=== PATIENT | male | born 1945 | race Caucasian/White ===

== ENCOUNTER 2017-11-16 14:41 | Inpatient (IN) | payer MEDICAID ==
[2017-11-16] MEDS: SOD CHLORIDE 0.9% 1,000 ML IV ×3 (15:23→22:45)
[2017-11-16] MEDS: AMIODARONE 900 MG in DEXTROSE 5% 482 ML IV (15:23)
[2017-11-16 15:55] LABS: WHITE BLOOD COUNT 32.4 10^3/ul (4.8-10.8)
[2017-11-16 15:55] LABS: ABNORMAL IP MESSAGE 1; HEMATOCRIT 33.2 % (42.0-52.0); HEMOGLOBIN 10.4 g/dl (14.0-18.0); MEAN CORPUSCULAR HEMOGLOBIN 29.6 pg (29.0-33.0); MEAN CORPUSCULAR HGB CONC 31.3 g/dl (32.0-37.0); MEAN CORPUSCULAR VOLUME 94.6 fl (82.0-101.0); MEAN PLATELET VOLUME 9.9 fl (7.4-10.4); NUCLEATED RED BLOOD CELLS% 0.1 /100WBC (0.0-0.0); PLATELET COUNT 334 10^3/UL (140-415); POSITIVE DIFF @See below; RED BLOOD COUNT 3.51 10^6/ul (4.70-6.10); RED CELL DISTRIBUTION WIDTH 14.9 % (11.5-14.5)
[2017-11-16 16:07] LABS: ADD MAN DIFF? YES
[2017-11-16 16:18] LABS: ALANINE AMINOTRANSFERASE 71 IU/L (13-69); ALBUMIN 3.2 g/dl (3.3-4.9); ALBUMIN/GLOBULIN RATIO 0.82; ALKALINE PHOSPHATASE 305 IU/L (42-121); ANION GAP 23 (8-16); ASPARTATE AMINO TRANSFERASE 115 IU/L (15-46); BILIRUBIN,INDIRECT 0.2 mg/dl (0-1.1); BILIRUBIN,TOTAL 0.2 mg/dl (0.2-1.3); BLOOD UREA NITROGEN 16 mg/dl (7-20); CALCIUM 8.7 mg/dl (8.4-10.2); CARBON DIOXIDE 16 mmol/L (21-31); CHLORIDE 102 mmol/L (97-110); GLUCOSE 263 mg/dl (70-220); POTASSIUM 4.1 mmol/L (3.5-5.1); SODIUM 137 mmol/L (135-144); TOTAL PROTEIN 7.1 g/dl (6.1-8.1)
[2017-11-16 16:24] LABS: INR 1.28; PROTIME 16.2 Sec (11.9-14.9); PT RATIO 1.3
[2017-11-16 16:25] LABS: PARTIAL THROMBOPLASTIN TIME 42.2 Sec (25.0-35.0)
[2017-11-16 16:27] LABS: B-TYPE NATRIURETIC PEPTIDE 377 PG/ML (0-125); TROPONIN-I 0.101 ng/ml (0.00-0.12)
[2017-11-16 16:29] LABS: BAND NEUTROPHILS #M 4.5 10^3/ul (0.0-0.6); BAND NEUTROPHILS % (M) 14 % (0-4); BASOPHIL #M 0.3 10^3/ul (0.0-0.0); BASOPHILS % (M) 1 % (0-2); EOSINOPHILS % (M) 2 % (0-7); LYMPHOCYTES #M 5.8 10^3/ul (0.8-2.9); LYMPHOCYTES % (M) 18 % (15-51); METAMYELOCYTES #M 1.9 10^3/ul (0.0-0.0); METAMYELOCYTES %M 6 % (0-0); MYELOCYTES #M 0.6 10^3/ul (0.0-0.0); MYELOCYTES % (M) 2 % (0-0); PLATELET ESTIMATE NORMAL; POLYCHROMASIA 1+ (0-0); PROMYELOCYTES #M 0.6 10^3/ul (0-0); PROMYELOCYTES % (M) 2 % (0-0); SEG NEUT #M 19.3 10^3/ul (1.6-7.5); SEGMENTED NEUTROPHILS (M) % 55 % (39-77); SMUDGE%M 4 % (0-0)
[2017-11-16 16:35] LABS: AADO2 Arterial 203.2 mmHg (7.0-24.0); Allen Test ACCEPTAB; Arterial Base Excess -8.8 mmol/L (-3.0-3); Arterial Blood Gas Oxygen Sat 99.8 mmHG (95.0-100.0); Arterial COHb 0.3 % (0.0-3.0); Arterial Fraction of Oxyhgb 99.1 % (93.0-99.0); Arterial HCO3 15.8 mmol/L (22.0-26.0); Arterial MetHb 0.4 % (0.0-1.5); Arterial Total Hemglobin 11.9 g/dl (12.0-18.0); Arterial pCO2 30.1 mmhg (35-45); MODE VENT - AC; Site Left Radial
[2017-11-16] MEDS: CEFEPIME 2GM/50 ML (PMX) 50 ML IVPB (19:19)
[2017-11-16] MEDS: SODIUM CHLORIDE 0.9% 1L BAG IV* (19:20)
[2017-11-16] MEDS: EPINEPHrine 0.1 MG/ML SYG IV (19:23)
[2017-11-16 19:53] LABS: LACTIC ACID 4.6 mmol/L (0.5-2.0)
[2017-11-16] MEDS ORDERED: ACETAMINOPHEN 325 MG TAB PO (20:00)
[2017-11-16] MEDS ORDERED: ONDANSETRON 4 MG INJ IV (20:00)
[2017-11-16 20:14] LABS: ADD UMIC YES; UR ASCORBIC ACID 40 mg/dL (NEGATIVE); UR BILIRUBIN (Dip) NEGATIVE (NEGATIVE); UR BLOOD (Dip) 1+ mg/dL (NEGATIVE); UR CLARITY CLOUDY (CLEAR); UR COLOR YELLOW (YELLOW); UR GLUCOSE (Dip) 2+ mg/dL (NEGATIVE); UR KETONES (Dip) NEGATIVE (NEGATIVE); UR LEUKOCYTE ESTERASE (Dip) NEGATIVE Leu/ul (NEGATIVE); UR NITRITE (Dip) NEGATIVE (NEGATIVE); UR RBC 6 /HPF (0-5); UR SPECIFIC GRAVITY (Dip) 1.014 (1.003-1.030); UR TOTAL PROTEIN (Dip) 2+ mg/dl (NEGATIVE); UR UROBILINOGEN (Dip) NEGATIVE (NEGATIVE); UR WBC 9 /HPF (0-5)
[2017-11-16 20:39] LABS: INR 1.26; PT RATIO 1.3
[2017-11-16] MEDS ORDERED: ALBUTEROL HFA 8 GM INHALER INH (21:00)
[2017-11-16] MEDS ORDERED: IPRATROPIUM (HFA) 12.9 GM INHALER INH (21:00)
[2017-11-16] MEDS ORDERED: ENOXAPARIN 100 MG/ML SYG SC (21:30)
[2017-11-16] MEDS: VANCOMYCIN 1 GM (PMX) 250 ML IVPB (21:30)
[2017-11-16 22:41] LABS: LACTIC ACID 3.8 mmol/L (0.5-2.0)
[2017-11-17 00:13] LABS: LACTIC ACID 3.4 mmol/L (0.5-2.0)
[2017-11-17 00:50] LABS: ADD MAN DIFF? NO
[2017-11-17 00:52] LABS: ABNORMAL IP MESSAGE 1; BASOPHIL # 0.1 10^3/ul (0.0-0.1); BASOPHILS % 0.3 % (0.0-2.0); HEMATOCRIT 31.5 % (42.0-52.0); HEMOGLOBIN 10.4 g/dl (14.0-18.0); LYMPHOCYTES # 1.5 10^3/ul (0.8-2.9); MEAN CORPUSCULAR HEMOGLOBIN 29.7 pg (29.0-33.0); MEAN PLATELET VOLUME 9.6 fl (7.4-10.4); MONOCYTE # 1.3 10^3/ul (0.3-0.9); MONOCYTES % 5.2 % (0.0-11.0); NEUTROPHIL # 21.8 10^3/ul (1.6-7.5); NEUTROPHILS % 86.4 % (39.0-77.0); PLATELET COUNT 298 10^3/UL (140-415); POSITIVE DIFF @See below; RED CELL DISTRIBUTION WIDTH 14.9 % (11.5-14.5)
[2017-11-17 00:52] LABS: WHITE BLOOD COUNT 25.2 10^3/ul (4.8-10.8)
[2017-11-17 01:17] LABS: ALANINE AMINOTRANSFERASE 70 IU/L (13-69); ALBUMIN 3.1 g/dl (3.3-4.9); ALBUMIN/GLOBULIN RATIO 0.77; ALKALINE PHOSPHATASE 223 IU/L (42-121); ANION GAP 12 (8-16); ASPARTATE AMINO TRANSFERASE 98 IU/L (15-46); BILIRUBIN,INDIRECT 0.4 mg/dl (0-1.1); BILIRUBIN,TOTAL 0.4 mg/dl (0.2-1.3); BLOOD UREA NITROGEN 26 mg/dl (7-20); CALCIUM 8.8 mg/dl (8.4-10.2); CARBON DIOXIDE 24 mmol/L (21-31); CHLORIDE 107 mmol/L (97-110); CREATININE 0.57 mg/dl (0.61-1.24); GLUCOSE 159 mg/dl (70-220); POTASSIUM 4.1 mmol/L (3.5-5.1); SODIUM 139 mmol/L (135-144); TOTAL PROTEIN 7.1 g/dl (6.1-8.1)
[2017-11-17] MEDS ORDERED: ENOXAPARIN 100 MG/ML SYG SC (02:00)
[2017-11-17] MEDS ORDERED: VANCOMYCIN IV PER PHARMACY XX (02:00)
[2017-11-17] MEDS: metroNIDAZOLE 500 MG/NS (PMX) 100 ML IVPB ×3 (02:24→22:17)
[2017-11-17] MEDS: ACETAMINOPHEN 650MG/20.3ML CUP NGT (02:24)
[2017-11-17] MEDS: METOPROLOL 25 MG TAB NGT ×3 (02:24→21:00)
[2017-11-17] MEDS ORDERED: LORAZEPAM 2 MG INJ IV (02:30)
[2017-11-17] MEDS: ATORVASTATIN 80 MG TAB NGT ×2 (03:31→21:00)
[2017-11-17] MEDS: LEVETIRACETAM 1000 MG (PMX) 100 ML IVPB ×3 (03:31→21:28)
[2017-11-17 05:52] LABS: TYPE AND SCREEN 1 1
[2017-11-17 05:59] LABS: ADD MAN DIFF? NO
[2017-11-17 06:07] LABS: BASOPHIL # 0.1 10^3/ul (0.0-0.1); BASOPHILS % 0.3 % (0.0-2.0); HEMATOCRIT 32.2 % (42.0-52.0); HEMOGLOBIN 10.6 g/dl (14.0-18.0); LYMPHOCYTES # 1.9 10^3/ul (0.8-2.9); LYMPHOCYTES % 9.3 % (15.0-51.0); MEAN CORPUSCULAR HEMOGLOBIN 29.9 pg (29.0-33.0); MEAN CORPUSCULAR HGB CONC 32.9 g/dl (32.0-37.0); MEAN PLATELET VOLUME 10.2 fl (7.4-10.4); MONOCYTE # 1.1 10^3/ul (0.3-0.9); MONOCYTES % 5.3 % (0.0-11.0); NEUTROPHIL # 16.8 10^3/ul (1.6-7.5); NEUTROPHILS % 83.8 % (39.0-77.0); PLATELET COUNT 274 10^3/UL (140-415); RED BLOOD COUNT 3.54 10^6/ul (4.70-6.10); RED CELL DISTRIBUTION WIDTH 14.8 % (11.5-14.5)
[2017-11-17 06:07] LABS: WHITE BLOOD COUNT 20.1 10^3/ul (4.8-10.8)
[2017-11-17 06:27] LABS: LACTIC ACID 1.6 mmol/L (0.5-2.0)
[2017-11-17 06:33] LABS: ALANINE AMINOTRANSFERASE 67 IU/L (13-69); ALBUMIN 3.1 g/dl (3.3-4.9); ALBUMIN/GLOBULIN RATIO 0.79; ALKALINE PHOSPHATASE 205 IU/L (42-121); ANION GAP 13 (8-16); ASPARTATE AMINO TRANSFERASE 82 IU/L (15-46); BILIRUBIN,INDIRECT 0.3 mg/dl (0-1.1); BILIRUBIN,TOTAL 0.3 mg/dl (0.2-1.3); BLOOD UREA NITROGEN 23 mg/dl (7-20); CALCIUM 8.6 mg/dl (8.4-10.2); CARBON DIOXIDE 23 mmol/L (21-31); CHLORIDE 108 mmol/L (97-110); CREATINE KINASE 342 IU/L (23-200); CREATININE 0.52 mg/dl (0.61-1.24); GLUCOSE 144 mg/dl (70-220); MAGNESIUM 1.4 mg/dl (1.7-2.5); POTASSIUM 3.8 mmol/L (3.5-5.1); SODIUM 140 mmol/L (135-144)
[2017-11-17 06:42] LABS: CK INDEX 1.4
[2017-11-17 06:43] LABS: CK-MB 4.69 ng/ml (0.0-2.4); TROPONIN-I 0.914 ng/ml (0.00-0.12)
[2017-11-17 07:54] LABS: THYROID STIMULATING HORMONE 0.769 MIU/L (0.465-4.680)
[2017-11-17 08:35] LABS: LACTIC ACID 1.5 mmol/L (0.5-2.0)
[2017-11-17] MEDS: PIPER-TAZO 3.375 GM IV (PMX) 100 ML IVPB ×3 (08:41→17:50)
[2017-11-17] MEDS: PANTOPRAZOLE 40 MG INJ IV (08:42)
[2017-11-17] MEDS: VANCOMYCIN 1 GM 250 ML IVPB ×2 (10:13→21:43)
[2017-11-17] MEDS: SOD CHLORIDE 0.9% 100 ML (10:35)
[2017-11-17] MEDS: IOHEXOL 300MG/ML 150 ML BTL (10:35)
[2017-11-17] MEDS: POTASSIUM CHLORIDE 20 MEQ POWDER FOR ORAL SOLN NGT (10:57)
[2017-11-17] MEDS: SOD CHLORIDE 0.9% 1,000 ML IV (10:57)
[2017-11-17] MEDS: MAGNESIUM SULFATE 4 GM/100 ML 100 ML IVPB (11:36)
[2017-11-17 12:44] LABS: LACTIC ACID 1.3 mmol/L (0.5-2.0)
[2017-11-17 12:46] LABS: CREATINE KINASE 257 IU/L (23-200)
[2017-11-17 13:01] LABS: CK-MB 2.58 ng/ml (0.0-2.4); TROPONIN-I 0.399 ng/ml (0.00-0.12)
[2017-11-17 19:07] LABS: CREATINE KINASE 211 IU/L (23-200)
[2017-11-17 19:07] LABS: LACTIC ACID 1.1 mmol/L (0.5-2.0)
[2017-11-17 19:19] LABS: CK INDEX 0.7
[2017-11-17 19:20] LABS: CK-MB 1.57 ng/ml (0.0-2.4)
[2017-11-18] MEDS: PIPER-TAZO 3.375 GM IV (PMX) 100 ML IVPB ×5 (00:15→23:35)
[2017-11-18] MEDS: SOD CHLORIDE 0.9% 1,000 ML IV ×2 (00:35→12:41)
[2017-11-18 05:43] LABS: ADD MAN DIFF? NO
[2017-11-18 05:44] LABS: BASOPHIL # 0.1 10^3/ul (0.0-0.1); BASOPHILS % 0.3 % (0.0-2.0); EOSINOPHILS % 0.1 % (0.0-7.0); HEMOGLOBIN 9.2 g/dl (14.0-18.0); LYMPHOCYTES # 1.9 10^3/ul (0.8-2.9); LYMPHOCYTES % 9.7 % (15.0-51.0); MEAN CORPUSCULAR HEMOGLOBIN 29.5 pg (29.0-33.0); MEAN CORPUSCULAR HGB CONC 31.7 g/dl (32.0-37.0); MEAN CORPUSCULAR VOLUME 92.9 fl (82.0-101.0); MEAN PLATELET VOLUME 9.6 fl (7.4-10.4); MONOCYTE # 1.1 10^3/ul (0.3-0.9); MONOCYTES % 5.5 % (0.0-11.0); NEUTROPHIL # 16.7 10^3/ul (1.6-7.5); NEUTROPHILS % 83.8 % (39.0-77.0); PLATELET COUNT 280 10^3/UL (140-415); RED BLOOD COUNT 3.12 10^6/ul (4.70-6.10); RED CELL DISTRIBUTION WIDTH 15.1 % (11.5-14.5)
[2017-11-18 05:44] LABS: WHITE BLOOD COUNT 19.9 10^3/ul (4.8-10.8)
[2017-11-18] MEDS: ACETAMINOPHEN 650MG/20.3ML CUP NGT ×2 (05:59→20:18)
[2017-11-18 06:13] LABS: ALANINE AMINOTRANSFERASE 45 IU/L (13-69); ALBUMIN/GLOBULIN RATIO 0.76; ALKALINE PHOSPHATASE 155 IU/L (42-121); ANION GAP 12 (8-16); ASPARTATE AMINO TRANSFERASE 59 IU/L (15-46); BILIRUBIN,INDIRECT 0.2 mg/dl (0-1.1); BILIRUBIN,TOTAL 0.2 mg/dl (0.2-1.3); BLOOD UREA NITROGEN 14 mg/dl (7-20); CALCIUM 8.3 mg/dl (8.4-10.2); CARBON DIOXIDE 25 mmol/L (21-31); CHLORIDE 108 mmol/L (97-110); CREATININE 0.54 mg/dl (0.61-1.24); GLUCOSE 109 mg/dl (70-220); MAGNESIUM 2.1 mg/dl (1.7-2.5); POTASSIUM 3.7 mmol/L (3.5-5.1); SODIUM 141 mmol/L (135-144); TOTAL PROTEIN 6.9 g/dl (6.1-8.1)
[2017-11-18] MEDS: metroNIDAZOLE 500 MG/NS (PMX) 100 ML IVPB ×3 (06:50→22:06)
[2017-11-18] MEDS: PANTOPRAZOLE 40 MG INJ IV (06:51)
[2017-11-18 08:29] LABS: AADO2 Arterial 74.5 mmHg (7.0-24.0); Arterial Base Excess -0.3 mmol/L (-3.0-3); Arterial Blood Gas Oxygen Sat 97.7 mmHG (95.0-100.0); Arterial COHb 0.3 % (0.0-3.0); Arterial Fraction of Oxyhgb 97.2 % (93.0-99.0); Arterial HCO3 21.9 mmol/L (22.0-26.0); Arterial MetHb 0.2 % (0.0-1.5); Arterial Total Hemglobin 10.2 g/dl (12.0-18.0); Arterial pCO2 27.8 mmhg (35-45); MODE VENT - AC; Site LB
[2017-11-18 08:35] LABS: VANCOMYCIN,TROUGH 8.3 ug/ml (10.0-20.0)
[2017-11-18] MEDS: LEVETIRACETAM 1000 MG (PMX) 100 ML IVPB ×2 (08:48→20:47)
[2017-11-18] MEDS: METOPROLOL 25 MG TAB NGT ×2 (08:50→20:47)
[2017-11-18] MEDS: VANCOMYCIN 1 GM 250 ML IVPB (09:12)
[2017-11-18] MEDS: VANCOMYCIN 1.5 GM in SOD CHLORIDE 0.9% 250 ML IVPB ×2 (09:14→22:06)
[2017-11-18] MEDS: ATORVASTATIN 80 MG TAB NGT (20:47)
[2017-11-19] MEDS: SOD CHLORIDE 0.9% 1,000 ML IV ×2 (01:09→13:07)
[2017-11-19 05:31] LABS: ADD MAN DIFF? NO
[2017-11-19 05:32] LABS: BASOPHIL # 0.1 10^3/ul (0.0-0.1); BASOPHILS % 0.6 % (0.0-2.0); EOSINOPHILS % 0.1 % (0.0-7.0); HEMATOCRIT 28.1 % (42.0-52.0); HEMOGLOBIN 8.9 g/dl (14.0-18.0); LYMPHOCYTES # 2.4 10^3/ul (0.8-2.9); LYMPHOCYTES % 15.4 % (15.0-51.0); MEAN CORPUSCULAR HEMOGLOBIN 29.3 pg (29.0-33.0); MEAN CORPUSCULAR HGB CONC 31.7 g/dl (32.0-37.0); MEAN CORPUSCULAR VOLUME 92.4 fl (82.0-101.0); MEAN PLATELET VOLUME 10.3 fl (7.4-10.4); MONOCYTES % 6.3 % (0.0-11.0); NEUTROPHIL # 11.9 10^3/ul (1.6-7.5); PLATELET COUNT 141 10^3/UL (140-415); RED BLOOD COUNT 3.04 10^6/ul (4.70-6.10); RED CELL DISTRIBUTION WIDTH 14.8 % (11.5-14.5)
[2017-11-19 05:32] LABS: WHITE BLOOD COUNT 15.4 10^3/ul (4.8-10.8)
[2017-11-19 06:12] LABS: ALANINE AMINOTRANSFERASE 38 IU/L (13-69); ALBUMIN 2.6 g/dl (3.3-4.9); ALBUMIN/GLOBULIN RATIO 0.74; ALKALINE PHOSPHATASE 119 IU/L (42-121); ANION GAP 11 (8-16); ASPARTATE AMINO TRANSFERASE 68 IU/L (15-46); BILIRUBIN,INDIRECT 0.3 mg/dl (0-1.1); BILIRUBIN,TOTAL 0.3 mg/dl (0.2-1.3); BLOOD UREA NITROGEN 13 mg/dl (7-20); CALCIUM 8.1 mg/dl (8.4-10.2); CARBON DIOXIDE 23 mmol/L (21-31); CHLORIDE 113 mmol/L (97-110); CREATININE 0.53 mg/dl (0.61-1.24); GLUCOSE 95 mg/dl (70-220); MAGNESIUM 1.8 mg/dl (1.7-2.5); POTASSIUM 3.1 mmol/L (3.5-5.1); SODIUM 144 mmol/L (135-144); TOTAL PROTEIN 6.1 g/dl (6.1-8.1)
[2017-11-19] MEDS: ACETAMINOPHEN 650MG/20.3ML CUP NGT (06:46)
[2017-11-19] MEDS: PANTOPRAZOLE 40 MG INJ IV (06:46)
[2017-11-19] MEDS: PIPER-TAZO 3.375 GM IV (PMX) 100 ML IVPB ×3 (06:46→17:53)
[2017-11-19] MEDS: metroNIDAZOLE 500 MG/NS (PMX) 100 ML IVPB ×3 (07:40→21:47)
[2017-11-19] MEDS: LEVETIRACETAM 1000 MG (PMX) 100 ML IVPB ×2 (08:59→22:12)
[2017-11-19] MEDS: METOPROLOL 25 MG TAB NGT ×2 (09:00→21:48)
[2017-11-19] MEDS: POTASSIUM CHLORIDE 20 MEQ POWDER FOR ORAL SOLN GTB (09:30)
[2017-11-19] MEDS: POTASSIUM CHLORIDE 100 ML IVPB (09:52)
[2017-11-19] MEDS: RIFAXIMIN 550 MG TAB GTB ×2 (09:52→21:47)
[2017-11-19] MEDS: VANCOMYCIN 1.5 GM in SOD CHLORIDE 0.9% 250 ML IVPB (10:17)
[2017-11-19] MEDS: ATORVASTATIN 80 MG TAB NGT (21:47)
[2017-11-20] MEDS: PIPER-TAZO 3.375 GM IV (PMX) 100 ML IVPB ×4 (00:13→17:50)
[2017-11-20] MEDS: VANCOMYCIN 1.5 GM in SOD CHLORIDE 0.9% 250 ML IVPB ×4 (00:46→23:58)
[2017-11-20 05:01] LABS: AADO2 Arterial 49.7 mmHg (7.0-24.0); Arterial Base Excess -3.6 mmol/L (-3.0-3); Arterial Blood Gas Oxygen Sat 98.5 mmHG (95.0-100.0); Arterial COHb 0.3 % (0.0-3.0); Arterial Fraction of Oxyhgb 97.9 % (93.0-99.0); Arterial HCO3 18.7 mmol/L (22.0-26.0); Arterial MetHb 0.3 % (0.0-1.5); Arterial Total Hemglobin 11.5 g/dl (12.0-18.0); MODE VENT - AC; Site Right Brachial
[2017-11-20] MEDS: PANTOPRAZOLE 40 MG INJ IV (06:27)
[2017-11-20] MEDS: metroNIDAZOLE 500 MG/NS (PMX) 100 ML IVPB (06:28)
[2017-11-20] MEDS: SOD CHLORIDE 0.9% 1,000 ML IV ×2 (07:42→16:00)
[2017-11-20 09:11] LABS: ADD MAN DIFF? NO
[2017-11-20 09:18] LABS: BASOPHIL # 0.1 10^3/ul (0.0-0.1); BASOPHILS % 0.5 % (0.0-2.0); EOSINOPHILS # 0.2 10^3/ul (0.0-0.5); EOSINOPHILS % 1.8 % (0.0-7.0); HEMATOCRIT 28.3 % (42.0-52.0); HEMOGLOBIN 9.4 g/dl (14.0-18.0); LYMPHOCYTES # 1.7 10^3/ul (0.8-2.9); LYMPHOCYTES % 14.1 % (15.0-51.0); MEAN CORPUSCULAR HEMOGLOBIN 30.4 pg (29.0-33.0); MEAN CORPUSCULAR HGB CONC 33.2 g/dl (32.0-37.0); MEAN CORPUSCULAR VOLUME 91.6 fl (82.0-101.0); MEAN PLATELET VOLUME 10.5 fl (7.4-10.4); MONOCYTE # 0.7 10^3/ul (0.3-0.9); MONOCYTES % 5.5 % (0.0-11.0); NEUTROPHIL # 9.4 10^3/ul (1.6-7.5); NEUTROPHILS % 77.7 % (39.0-77.0); PLATELET COUNT 184 10^3/UL (140-415); RED BLOOD COUNT 3.09 10^6/ul (4.70-6.10); RED CELL DISTRIBUTION WIDTH 14.7 % (11.5-14.5)
[2017-11-20 09:18] LABS: WHITE BLOOD COUNT 12.1 10^3/ul (4.8-10.8)
[2017-11-20 09:33] LABS: ALANINE AMINOTRANSFERASE 39 IU/L (13-69); ALBUMIN 2.3 g/dl (3.3-4.9); ALBUMIN/GLOBULIN RATIO 0.69; ALKALINE PHOSPHATASE 117 IU/L (42-121); ANION GAP 8 (8-16); ASPARTATE AMINO TRANSFERASE 57 IU/L (15-46); BILIRUBIN,INDIRECT 0.3 mg/dl (0-1.1); BILIRUBIN,TOTAL 0.3 mg/dl (0.2-1.3); BLOOD UREA NITROGEN 11 mg/dl (7-20); CARBON DIOXIDE 24 mmol/L (21-31); CHLORIDE 111 mmol/L (97-110); CREATININE 0.46 mg/dl (0.61-1.24); GLUCOSE 95 mg/dl (70-220); MAGNESIUM 1.5 mg/dl (1.7-2.5); POTASSIUM 3.1 mmol/L (3.5-5.1); SODIUM 140 mmol/L (135-144); TOTAL PROTEIN 5.6 g/dl (6.1-8.1)
[2017-11-20] MEDS: RIFAXIMIN 550 MG TAB GTB ×3 (09:42→23:10)
[2017-11-20] MEDS: AMLODIPINE 5 MG TAB PO ×2 (09:47→23:02)
[2017-11-20] MEDS: LEVETIRACETAM 1000 MG (PMX) 100 ML IVPB ×3 (10:30→23:58)
[2017-11-20] MEDS: MAGNESIUM SULFATE 3 GM in SOD CHLORIDE 0.9% 100 ML IVPB (11:14)
[2017-11-20] MEDS: LACTOBACILLUS RHAMNOSUS CAP PO ×2 (12:26→23:02)
[2017-11-20] MEDS ORDERED: POTASSIUM CHLORIDE (SR) 20 MEQ TAB PO (21:51)
[2017-11-20 21:54] LABS: VANCOMYCIN,TROUGH 12.6 ug/ml (10.0-20.0)
[2017-11-20] MEDS: METOPROLOL 25 MG TAB NGT (23:01)
[2017-11-20] MEDS: ATORVASTATIN 80 MG TAB NGT (23:02)
[2017-11-20] MEDS: FAMOTIDINE 20 MG TAB GTB (23:03)
[2017-11-21] MEDS: POTASSIUM CHLORIDE 20 MEQ POWDER FOR ORAL SOLN PO (00:02)
[2017-11-21] MEDS: PIPER-TAZO 3.375 GM IV (PMX) 100 ML IVPB ×4 (00:48→20:30)
[2017-11-21] MEDS: SOD CHLORIDE 0.9% 1,000 ML IV (03:00)
[2017-11-21] MEDS: LEVETIRACETAM 1000 MG (PMX) 100 ML IVPB ×2 (08:18→21:46)
[2017-11-21] MEDS: RIFAXIMIN 200 MG TAB PO (09:40)
[2017-11-21] MEDS: VANCOMYCIN 1.5 GM in SOD CHLORIDE 0.9% 250 ML IVPB ×2 (09:56→22:32)
[2017-11-21] MEDS: LACTOBACILLUS RHAMNOSUS CAP PO ×2 (10:01→20:30)
[2017-11-21] MEDS: METOPROLOL 25 MG TAB NGT ×2 (10:02→20:33)
[2017-11-21] MEDS: AMLODIPINE 5 MG TAB PO ×2 (10:02→20:32)
[2017-11-21 11:03] LABS: ADD MAN DIFF? NO
[2017-11-21 11:07] LABS: WHITE BLOOD COUNT 20.2 10^3/ul (4.8-10.8)
[2017-11-21 11:07] LABS: BASOPHILS % 0.2 % (0.0-2.0); EOSINOPHILS # 0.1 10^3/ul (0.0-0.5); EOSINOPHILS % 0.5 % (0.0-7.0); HEMATOCRIT 29.9 % (42.0-52.0); HEMOGLOBIN 10.2 g/dl (14.0-18.0); LYMPHOCYTES # 1.8 10^3/ul (0.8-2.9); MEAN CORPUSCULAR HEMOGLOBIN 30.4 pg (29.0-33.0); MEAN CORPUSCULAR HGB CONC 34.1 g/dl (32.0-37.0); MEAN CORPUSCULAR VOLUME 89.3 fl (82.0-101.0); MEAN PLATELET VOLUME 9.5 fl (7.4-10.4); MONOCYTE # 0.7 10^3/ul (0.3-0.9); MONOCYTES % 3.7 % (0.0-11.0); NEUTROPHIL # 17.4 10^3/ul (1.6-7.5); NEUTROPHILS % 86.2 % (39.0-77.0); PLATELET COUNT 250 10^3/UL (140-415); RED BLOOD COUNT 3.35 10^6/ul (4.70-6.10); RED CELL DISTRIBUTION WIDTH 14.6 % (11.5-14.5)
[2017-11-21 11:31] LABS: ALANINE AMINOTRANSFERASE 33 IU/L (13-69); ALBUMIN 2.5 g/dl (3.3-4.9); ALBUMIN/GLOBULIN RATIO 0.78; ALKALINE PHOSPHATASE 136 IU/L (42-121); ANION GAP 6 (8-16); ASPARTATE AMINO TRANSFERASE 51 IU/L (15-46); BILIRUBIN,INDIRECT 0.2 mg/dl (0-1.1); BILIRUBIN,TOTAL 0.2 mg/dl (0.2-1.3); BLOOD UREA NITROGEN 7 mg/dl (7-20); CALCIUM 7.7 mg/dl (8.4-10.2); CARBON DIOXIDE 24 mmol/L (21-31); CHLORIDE 105 mmol/L (97-110); CREATININE 0.47 mg/dl (0.61-1.24); GLUCOSE 122 mg/dl (70-220); MAGNESIUM 1.4 mg/dl (1.7-2.5); POTASSIUM 3.2 mmol/L (3.5-5.1); SODIUM 132 mmol/L (135-144); TOTAL PROTEIN 5.7 g/dl (6.1-8.1)
[2017-11-21] MEDS: RIFAXIMIN 200 MG TAB GTB ×2 (12:47→21:58)
[2017-11-21] MEDS: POTASSIUM CHLORIDE (SR) 20 MEQ TAB PO (13:22)
[2017-11-21] MEDS: MAGNESIUM SULFATE 4 GM/100 ML 100 ML IVPB (15:23)
[2017-11-21] MEDS: ATORVASTATIN 80 MG TAB NGT (20:30)
[2017-11-21] MEDS: FAMOTIDINE 20 MG TAB GTB (20:30)
[2017-11-22] MEDS: ACETAMINOPHEN 650MG/20.3ML CUP NGT ×2 (00:30→08:40)
[2017-11-22] MEDS: PIPER-TAZO 3.375 GM IV (PMX) 100 ML IVPB ×4 (02:37→12:22)
[2017-11-22] MEDS: RIFAXIMIN 200 MG TAB GTB (08:40)
[2017-11-22] MEDS: LACTOBACILLUS RHAMNOSUS CAP PO (08:40)
[2017-11-22] MEDS: LEVETIRACETAM 1000 MG (PMX) 100 ML IVPB (08:40)
[2017-11-22] MEDS: METOPROLOL 25 MG TAB NGT (08:40)
[2017-11-22] MEDS: AMLODIPINE 5 MG TAB PO (08:40)
[2017-11-22 08:52] LABS: ADD MAN DIFF? NO
[2017-11-22 08:58] LABS: WHITE BLOOD COUNT 15.7 10^3/ul (4.8-10.8)
[2017-11-22 08:58] LABS: BASOPHIL # 0.1 10^3/ul (0.0-0.1); BASOPHILS % 0.3 % (0.0-2.0); EOSINOPHILS # 0.1 10^3/ul (0.0-0.5); EOSINOPHILS % 0.7 % (0.0-7.0); HEMATOCRIT 32.5 % (42.0-52.0); HEMOGLOBIN 10.8 g/dl (14.0-18.0); LYMPHOCYTES # 1.9 10^3/ul (0.8-2.9); LYMPHOCYTES % 12.2 % (15.0-51.0); MEAN CORPUSCULAR HEMOGLOBIN 29.8 pg (29.0-33.0); MEAN CORPUSCULAR HGB CONC 33.2 g/dl (32.0-37.0); MEAN CORPUSCULAR VOLUME 89.5 fl (82.0-101.0); MEAN PLATELET VOLUME 10.6 fl (7.4-10.4); MONOCYTE # 0.9 10^3/ul (0.3-0.9); MONOCYTES % 5.5 % (0.0-11.0); NEUTROPHIL # 12.6 10^3/ul (1.6-7.5); NEUTROPHILS % 80.7 % (39.0-77.0); PLATELET COUNT 212 10^3/UL (140-415); RED BLOOD COUNT 3.63 10^6/ul (4.70-6.10); RED CELL DISTRIBUTION WIDTH 14.7 % (11.5-14.5)
[2017-11-22 09:49] LABS: ANION GAP 10 (8-16); BLOOD UREA NITROGEN 7 mg/dl (7-20); CARBON DIOXIDE 25 mmol/L (21-31); CHLORIDE 102 mmol/L (97-110); CREATININE 0.44 mg/dl (0.61-1.24); GLUCOSE 121 mg/dl (70-220); HDL CHOLESTEROL 21 mg/dl (31-75); MAGNESIUM 1.8 mg/dl (1.7-2.5); POTASSIUM 3.3 mmol/L (3.5-5.1); SODIUM 134 mmol/L (135-144); TRIGLYCERIDES 66 mg/dl (0-149)
[2017-11-22 09:50] LABS: CHOLESTEROL < 50 mg/dl (100-200)
[2017-11-22] MEDS: VANCOMYCIN 1.5 GM in SOD CHLORIDE 0.9% 250 ML IVPB (10:20)
[2017-11-22] MEDS: POTASSIUM CHLORIDE 20 MEQ POWDER FOR ORAL SOLN GTB (11:37)
[2017-11-22] MEDS: MAGNESIUM SULFATE 2 GM/50 ML 50 ML IVPB (13:06)
== END 2017-11-22 17:09 | DRG 870 ==
LOC: TEL 11-19 10:50 → E/R 14:41 → TEL 19:42
PROC: 5A1955Z Respiratory Ventilation, Greater than 96 Consecutive Hours (ICD-10-PCS; principal; 2017-11-16)
PROC: 4A133R1 Monitoring of Arterial Saturation, Peripheral, Percutaneous Approach (ICD-10-PCS; 2017-11-16)
PROC: 30233K1 Transfusion of Nonautologous Frozen Plasma into Peripheral Vein, Percutaneous Approach (ICD-10-PCS; 2017-11-17)
PROC: 4A00X4Z Measurement of Central Nervous Electrical Activity, External Approach (ICD-10-PCS; 2017-11-18)
DX: A41.9 Sepsis, unspecified organism (principal); I46.9 Cardiac arrest, cause unspecified; I21.4 Non-ST elevation (NSTEMI) myocardial infarction; R65.21 Severe sepsis with septic shock; I62.01 Nontraumatic acute subdural hemorrhage; K72.00 Acute and subacute hepatic failure without coma; J96.20 Acute and chronic respiratory failure, unspecified whether with hypoxia or hypercapnia; I49.01 Ventricular fibrillation; G93.49 Other encephalopathy; K80.10 Calculus of gallbladder with chronic cholecystitis without obstruction; Z66 Do not resuscitate; Z93.0 Tracheostomy status; Z93.1 Gastrostomy status; D18.1 Lymphangioma, any site; Z87.820 Personal history of traumatic brain injury; R13.10 Dysphagia, unspecified; H70.91 Unspecified mastoiditis, right ear; H66.91 Otitis media, unspecified, right ear; J32.0 Chronic maxillary sinusitis
CPT/HCPCS: 36415; 36430; 36600; 70450; 71045; 74177; 76705; 80048; 80053; 80061; 80202; 81001; 82550; 82553; 82803; 83605; 83735; 83880; 84443; 84484; 85025; 85610; 85730; 86674; 86850; 86900; 86901; 87040; 87045; 87075; 87086; 87177; 87205; 93005; 93306; 93971; 94002; 94003; 96365; 96366; 96367; 96368; 96375; 96376; 99291-25

== ENCOUNTER 2018-03-05 10:34 | Inpatient (IN) | payer OTHER, MEDICAID ==
[2018-03-05 11:08] LABS: AADO2 Arterial 74.9 mmHg (7.0-24.0); Arterial Base Excess 8.1 mmol/L (-3.0-3); Arterial Blood Gas Oxygen Sat 97.1 mmHG (95.0-100.0); Arterial COHb 0.3 % (0.0-3.0); Arterial Fraction of Oxyhgb 96.5 % (93.0-99.0); Arterial HCO3 29.9 mmol/L (22.0-26.0); Arterial MetHb 0.3 % (0.0-1.5); Arterial Total Hemglobin 8.8 g/dl (12.0-18.0); Arterial pCO2 31.2 mmhg (35-45); MODE TRACH COLLAR; Site LB
[2018-03-05 11:22] LABS: ADD MAN DIFF? NO
[2018-03-05 11:26] LABS: WHITE BLOOD COUNT 23.6 10^3/ul (4.8-10.8)
[2018-03-05 11:26] LABS: ABNORMAL IP MESSAGE 1; BASOPHILS % 0.1 % (0.0-2.0); HEMATOCRIT 24.3 % (42.0-52.0); HEMOGLOBIN 7.9 g/dl (14.0-18.0); LYMPHOCYTES # 1.4 10^3/ul (0.8-2.9); LYMPHOCYTES % 5.8 % (15.0-51.0); MEAN CORPUSCULAR HEMOGLOBIN 28.4 pg (29.0-33.0); MEAN CORPUSCULAR HGB CONC 32.5 g/dl (32.0-37.0); MEAN CORPUSCULAR VOLUME 87.4 fl (82.0-101.0); MONOCYTE # 1.2 10^3/ul (0.3-0.9); MONOCYTES % 5.2 % (0.0-11.0); NEUTROPHIL # 20.9 10^3/ul (1.6-7.5); NEUTROPHILS % 88.4 % (39.0-77.0); PLATELET COUNT 389 10^3/UL (140-415); POSITIVE DIFF @See below; RED BLOOD COUNT 2.78 10^6/ul (4.70-6.10); RED CELL DISTRIBUTION WIDTH 14.7 % (11.5-14.5)
[2018-03-05] MEDS: PANTOPRAZOLE 40 MG INJ IV ×2 (11:41→21:20)
[2018-03-05 11:47] LABS: ALANINE AMINOTRANSFERASE 158 IU/L (13-69); ALBUMIN 3.5 g/dl (3.3-4.9); ALBUMIN/GLOBULIN RATIO 0.81; ALKALINE PHOSPHATASE 239 IU/L (42-121); ANION GAP 17 (8-16); ASPARTATE AMINO TRANSFERASE 103 IU/L (15-46); BILIRUBIN,INDIRECT 0.2 mg/dl (0-1.1); BILIRUBIN,TOTAL 0.2 mg/dl (0.2-1.3); BLOOD UREA NITROGEN 69 mg/dl (7-20); CALCIUM 9.3 mg/dl (8.4-10.2); CARBON DIOXIDE 32 mmol/L (21-31); CHLORIDE 91 mmol/L (97-110); GLUCOSE 139 mg/dl (70-220); POTASSIUM 3.7 mmol/L (3.5-5.1); SODIUM 136 mmol/L (135-144); TOTAL PROTEIN 7.8 g/dl (6.1-8.1)
[2018-03-05 11:48] LABS: INR 1.13; PROTIME 14.7 Sec (11.9-14.9); PT RATIO 1.1
[2018-03-05 11:49] LABS: PARTIAL THROMBOPLASTIN TIME 36.2 Sec (25.0-35.0)
[2018-03-05 11:57] LABS: TROPONIN-I < 0.010 ng/ml (0.000-0.120)
[2018-03-05] MEDS: CEFEPIME 2GM/50 ML (PMX) 50 ML IVPB (14:03)
[2018-03-05] MEDS: SODIUM CHLORIDE 0.9% 1L BAG IV* (14:03)
[2018-03-05 14:23] LABS: ADD UMIC YES; UR ASCORBIC ACID 40 mg/dL (NEGATIVE); UR BACTERIA FEW /HPF (NONE SEEN); UR BILIRUBIN (Dip) NEGATIVE (NEGATIVE); UR BLOOD (Dip) 1+ mg/dL (NEGATIVE); UR BUDDING YEAST MODERATE /HPF (NONE SEEN); UR CLARITY SLIGHTLY CLOUDY (CLEAR); UR COLOR YELLOW (YELLOW); UR GLUCOSE (Dip) NEGATIVE (NEGATIVE); UR KETONES (Dip) NEGATIVE (NEGATIVE); UR LEUKOCYTE ESTERASE (Dip) 3+ Leu/ul (NEGATIVE); UR NITRITE (Dip) NEGATIVE (NEGATIVE); UR RBC 6 /HPF (0-5); UR SPECIFIC GRAVITY (Dip) 1.009 (1.003-1.030); UR TOTAL PROTEIN (Dip) 1+ mg/dl (NEGATIVE); UR UROBILINOGEN (Dip) NEGATIVE (NEGATIVE); UR WBC 43 /HPF (0-5)
[2018-03-05] MEDS: VANCOMYCIN 1 GM (PMX) 250 ML IVPB (14:44)
[2018-03-05 15:18] LABS: LACTIC ACID 1.6 mmol/L (0.5-2.0)
[2018-03-05] MEDS ORDERED: ONDANSETRON 4 MG INJ IV ×2 (15:30→16:30)
[2018-03-05] MEDS ORDERED: ACETAMINOPHEN 325 MG TAB PO (15:30)
[2018-03-05] MEDS ORDERED: HYDROCODONE/APAP (5/325) TAB PO (16:00)
[2018-03-05] MEDS ORDERED: NA PHOSPHATE/BIPHOS 133 ML ENEMA PR (16:00)
[2018-03-05] MEDS ORDERED: BISACODYL 10 MG SUPP PR (16:00)
[2018-03-05] MEDS ORDERED: ALBUTEROL 0.083% (NEB) 2.5 MG/3 ML AMP NEB (16:00)
[2018-03-05] MEDS ORDERED: NACL 0.9% 3 ML SYG IV (16:30)
[2018-03-05 17:05] LABS: LACTIC ACID 0.9 mmol/L (0.5-2.0)
[2018-03-05 20:06] LABS: LACTIC ACID 1.9 mmol/L (0.5-2.0)
[2018-03-05] MEDS: DOCUSATE SODIUM 100 MG CAP PO (20:27)
[2018-03-05] MEDS: FERROUS SULFATE 60 MG/ML 5ML CUP GTB (20:27)
[2018-03-05] MEDS: FAMOTIDINE 20 MG TAB GTB (20:27)
[2018-03-05] MEDS ORDERED: NON-FORMULARY/PATIENT OWN MED (Cran/Vitc/Mannose/Inulin/Brom (Uti-Stat Liquid) 3,875 MG) GTB (21:00)
[2018-03-05] MEDS: ENOXAPARIN 30 MG/0.3 ML SYG SC (21:00)
[2018-03-05] MEDS ORDERED: NON-FORMULARY/PATIENT OWN MED (Lactobacillus Acidophilus/Pect (Acidophilus-Pectin Capsule) GTB (21:00)
[2018-03-05] MEDS ORDERED: LEVETIRACETAM 500 MG TAB PO (21:00)
[2018-03-05] MEDS: SOD CHLORIDE 0.9% 1,000 ML IV (21:20)
[2018-03-05] MEDS: CEFEPIME 1GM/50 ML (PMX) 50 ML IVPB (21:31)
[2018-03-05] MEDS: CHLORHEXIDINE GLUCONATE 15 ML UD CUP PO (21:31)
[2018-03-05] MEDS: LEVETIRACETAM IV 750 MG in DEXTROSE 5% 100 ML IVPB (21:31)
[2018-03-05] MEDS: EPOETIN 4000 UNITS/ML (NON ESRD/NON ONCOLOGY) SC (22:00)
[2018-03-06] MEDS: SOD CHLORIDE 0.9% 1,000 ML IV ×2 (04:00→15:33)
[2018-03-06] MEDS: PANTOPRAZOLE 40 MG INJ IV ×2 (06:27→17:30)
[2018-03-06 07:29] LABS: ADD MAN DIFF? NO
[2018-03-06 07:31] LABS: BASOPHILS % 0.2 % (0.0-2.0); EOSINOPHILS % 0.1 % (0.0-7.0); HEMATOCRIT 22.9 % (42.0-52.0); HEMOGLOBIN 7.3 g/dl (14.0-18.0); LYMPHOCYTES # 1.5 10^3/ul (0.8-2.9); LYMPHOCYTES % 8.8 % (15.0-51.0); MEAN CORPUSCULAR HEMOGLOBIN 28.6 pg (29.0-33.0); MEAN CORPUSCULAR HGB CONC 31.9 g/dl (32.0-37.0); MEAN CORPUSCULAR VOLUME 89.8 fl (82.0-101.0); MEAN PLATELET VOLUME 10.8 fl (7.4-10.4); MONOCYTE # 0.9 10^3/ul (0.3-0.9); MONOCYTES % 5.4 % (0.0-11.0); NEUTROPHIL # 14.8 10^3/ul (1.6-7.5); NEUTROPHILS % 84.9 % (39.0-77.0); PLATELET COUNT 299 10^3/UL (140-415); RED BLOOD COUNT 2.55 10^6/ul (4.70-6.10); RED CELL DISTRIBUTION WIDTH 14.9 % (11.5-14.5)
[2018-03-06 07:31] LABS: WHITE BLOOD COUNT 17.4 10^3/ul (4.8-10.8)
[2018-03-06 07:59] LABS: ALANINE AMINOTRANSFERASE 125 IU/L (13-69); ALBUMIN/GLOBULIN RATIO 0.78; ALKALINE PHOSPHATASE 171 IU/L (42-121); ANION GAP 13 (8-16); ASPARTATE AMINO TRANSFERASE 74 IU/L (15-46); BILIRUBIN,INDIRECT 0.2 mg/dl (0-1.1); BILIRUBIN,TOTAL 0.2 mg/dl (0.2-1.3); BLOOD UREA NITROGEN 47 mg/dl (7-20); CARBON DIOXIDE 28 mmol/L (21-31); CHLORIDE 105 mmol/L (97-110); CREATININE 0.99 mg/dl (0.61-1.24); GLUCOSE 113 mg/dl (70-220); POTASSIUM 3.2 mmol/L (3.5-5.1); SODIUM 143 mmol/L (135-144); TOTAL PROTEIN 6.8 g/dl (6.1-8.1)
[2018-03-06] MEDS: CHLORHEXIDINE GLUCONATE 15 ML UD CUP PO ×2 (08:57→21:46)
[2018-03-06] MEDS: MULTIVITAMINS THERAPEUTIC TAB PO (08:57)
[2018-03-06] MEDS: ZINC SULFATE 220 MG CAP GTB (08:57)
[2018-03-06] MEDS: MAGNESIUM HYDROXIDE 30ML CUP GTB (08:58)
[2018-03-06] MEDS: ASCORBIC ACID 500 MG TAB GTB (08:58)
[2018-03-06] MEDS: FERROUS SULFATE 60 MG/ML 5ML CUP GTB ×2 (08:58→21:46)
[2018-03-06] MEDS ORDERED: NON-FORMULARY/PATIENT OWN MED (Cranberry Fruit Concentrate (Cranberry) 450 MG) GTB (09:00)
[2018-03-06] MEDS: ENOXAPARIN 30 MG/0.3 ML SYG SC (09:00)
[2018-03-06] MEDS: CEFEPIME 1GM/50 ML (PMX) 50 ML IVPB ×2 (09:01→21:47)
[2018-03-06] MEDS: LEVETIRACETAM IV 750 MG in DEXTROSE 5% 100 ML IVPB ×2 (10:49→21:00)
[2018-03-06] MEDS: NS + KCL 20 MEQ 1,000 ML IV ×2 (10:49→19:00)
[2018-03-06] MEDS: POTASSIUM CHLORIDE 100 ML IVPB ×2 (10:49→14:08)
[2018-03-06] MEDS: LACTOBACILLUS RHAMNOSUS CAP PO ×2 (11:10→21:47)
[2018-03-06] MEDS ORDERED: VANCOMYCIN IV PER PHARMACY XX (12:30)
[2018-03-06] MEDS ORDERED: MAGNESIUM HYDROXIDE 30ML CUP GTB (13:00)
[2018-03-06] MEDS ORDERED: DOCUSATE SODIUM 100 MG CAP PO (13:00)
[2018-03-06] MEDS: ACETAMINOPHEN 500 MG TAB PO (13:39)
[2018-03-06] MEDS: VANCOMYCIN 1.5 GM in SOD CHLORIDE 0.9% 250 ML IVPB (16:10)
[2018-03-07] MEDS: ACETAMINOPHEN 500 MG TAB PO (01:08)
[2018-03-07 02:24] LABS: IMMEDIATE SPIN CROSSMATCH 1 1
[2018-03-07] MEDS: NS + KCL 20 MEQ 1,000 ML IV ×2 (06:31→17:59)
[2018-03-07] MEDS: PANTOPRAZOLE 40 MG INJ IV ×2 (06:32→18:00)
[2018-03-07] MEDS: VANCOMYCIN 1 GM 250 ML IVPB ×2 (06:32→18:00)
[2018-03-07 07:24] LABS: ADD MAN DIFF? NO
[2018-03-07 07:29] LABS: WHITE BLOOD COUNT 16.1 10^3/ul (4.8-10.8)
[2018-03-07 07:29] LABS: BASOPHIL # 0.1 10^3/ul (0.0-0.1); BASOPHILS % 0.4 % (0.0-2.0); EOSINOPHILS # 0.1 10^3/ul (0.0-0.5); EOSINOPHILS % 0.6 % (0.0-7.0); HEMATOCRIT 24.8 % (42.0-52.0); HEMOGLOBIN 7.8 g/dl (14.0-18.0); LYMPHOCYTES # 1.3 10^3/ul (0.8-2.9); LYMPHOCYTES % 8.2 % (15.0-51.0); MEAN CORPUSCULAR HEMOGLOBIN 27.7 pg (29.0-33.0); MEAN CORPUSCULAR HGB CONC 31.5 g/dl (32.0-37.0); MEAN CORPUSCULAR VOLUME 87.9 fl (82.0-101.0); MEAN PLATELET VOLUME 10.9 fl (7.4-10.4); MONOCYTE # 0.9 10^3/ul (0.3-0.9); MONOCYTES % 5.3 % (0.0-11.0); NEUTROPHIL # 13.6 10^3/ul (1.6-7.5); NEUTROPHILS % 84.9 % (39.0-77.0); PLATELET COUNT 196 10^3/UL (140-415); RED BLOOD COUNT 2.82 10^6/ul (4.70-6.10); RED CELL DISTRIBUTION WIDTH 16.4 % (11.5-14.5)
[2018-03-07 07:50] LABS: ALANINE AMINOTRANSFERASE 144 IU/L (13-69); ALBUMIN 2.6 g/dl (3.3-4.9); ALBUMIN/GLOBULIN RATIO 0.66; ALKALINE PHOSPHATASE 148 IU/L (42-121); ANION GAP 9 (8-16); ASPARTATE AMINO TRANSFERASE 88 IU/L (15-46); BILIRUBIN,INDIRECT 0.5 mg/dl (0-1.1); BILIRUBIN,TOTAL 0.5 mg/dl (0.2-1.3); BLOOD UREA NITROGEN 27 mg/dl (7-20); CARBON DIOXIDE 26 mmol/L (21-31); CHLORIDE 113 mmol/L (97-110); CREATININE 0.77 mg/dl (0.61-1.24); GLUCOSE 118 mg/dl (70-220); MAGNESIUM 1.9 mg/dl (1.7-2.5); POTASSIUM 3.2 mmol/L (3.5-5.1); SODIUM 145 mmol/L (135-144); TOTAL PROTEIN 6.5 g/dl (6.1-8.1)
[2018-03-07] MEDS: CHLORHEXIDINE GLUCONATE 15 ML UD CUP PO ×2 (09:37→20:22)
[2018-03-07] MEDS: LACTOBACILLUS RHAMNOSUS CAP PO ×2 (09:38→20:23)
[2018-03-07] MEDS: FERROUS SULFATE 60 MG/ML 5ML CUP GTB ×2 (09:38→20:22)
[2018-03-07] MEDS: ZINC SULFATE 220 MG CAP GTB (09:38)
[2018-03-07] MEDS: ASCORBIC ACID 500 MG TAB GTB (09:38)
[2018-03-07] MEDS: MULTIVITAMINS THERAPEUTIC TAB PO (09:38)
[2018-03-07] MEDS: CEFEPIME 1GM/50 ML (PMX) 50 ML IVPB ×2 (09:38→20:23)
[2018-03-07] MEDS: LEVETIRACETAM IV 750 MG in DEXTROSE 5% 100 ML IVPB ×2 (10:45→21:09)
[2018-03-07] MEDS: POTASSIUM CHLORIDE 100 ML IVPB ×4 (10:45→17:59)
[2018-03-07] MEDS: VORICONAZOLE 200 MG TAB PO ×2 (13:59→20:23)
[2018-03-07] MEDS: EPOETIN 4000 UNITS/ML (NON ESRD/NON ONCOLOGY) SC (18:01)
[2018-03-07] MEDS: PEG/ELECTROLYTES 4L BTL PO (20:24)
[2018-03-07] MEDS: SODIUM HYPOCHLORITE (1/40) 1 APPLIC BTL IRR (22:22)
[2018-03-08] MEDS: NS + KCL 20 MEQ 1,000 ML IV ×2 (01:00→12:00)
[2018-03-08] MEDS: PEG/ELECTROLYTES 4L BTL PO (01:38)
[2018-03-08 05:43] LABS: ADD MAN DIFF? NO
[2018-03-08 05:48] LABS: WHITE BLOOD COUNT 15.2 10^3/ul (4.8-10.8)
[2018-03-08 05:48] LABS: BASOPHILS % 0.3 % (0.0-2.0); EOSINOPHILS # 0.1 10^3/ul (0.0-0.5); EOSINOPHILS % 0.7 % (0.0-7.0); HEMATOCRIT 24.8 % (42.0-52.0); HEMOGLOBIN 7.9 g/dl (14.0-18.0); LYMPHOCYTES # 1.8 10^3/ul (0.8-2.9); LYMPHOCYTES % 12.1 % (15.0-51.0); MEAN CORPUSCULAR HGB CONC 31.9 g/dl (32.0-37.0); MEAN CORPUSCULAR VOLUME 87.9 fl (82.0-101.0); MEAN PLATELET VOLUME 9.9 fl (7.4-10.4); MONOCYTES % 6.4 % (0.0-11.0); NEUTROPHIL # 12.2 10^3/ul (1.6-7.5); NEUTROPHILS % 79.8 % (39.0-77.0); PLATELET COUNT 321 10^3/UL (140-415); RED BLOOD COUNT 2.82 10^6/ul (4.70-6.10)
[2018-03-08] MEDS: PANTOPRAZOLE 40 MG INJ IV ×2 (05:54→18:31)
[2018-03-08] MEDS: VANCOMYCIN 1 GM 250 ML IVPB (05:55)
[2018-03-08 06:19] LABS: ALANINE AMINOTRANSFERASE 158 IU/L (13-69); ALBUMIN 2.7 g/dl (3.3-4.9); ALBUMIN/GLOBULIN RATIO 0.69; ALKALINE PHOSPHATASE 171 IU/L (42-121); ANION GAP 10 (8-16); ASPARTATE AMINO TRANSFERASE 114 IU/L (15-46); BILIRUBIN,INDIRECT 0.4 mg/dl (0-1.1); BILIRUBIN,TOTAL 0.4 mg/dl (0.2-1.3); BLOOD UREA NITROGEN 17 mg/dl (7-20); CALCIUM 8.9 mg/dl (8.4-10.2); CARBON DIOXIDE 25 mmol/L (21-31); CHLORIDE 112 mmol/L (97-110); CREATININE 0.66 mg/dl (0.61-1.24); GLUCOSE 109 mg/dl (70-220); MAGNESIUM 1.6 mg/dl (1.7-2.5); POTASSIUM 3.2 mmol/L (3.5-5.1); SODIUM 144 mmol/L (135-144); TOTAL PROTEIN 6.6 g/dl (6.1-8.1)
[2018-03-08 06:30] LABS: VANCOMYCIN,TROUGH 21.5 ug/ml (10.0-20.0)
[2018-03-08] MEDS: POTASSIUM CHLORIDE 100 ML IVPB ×2 (08:04→12:00)
[2018-03-08] MEDS: ASCORBIC ACID 500 MG TAB GTB (08:07)
[2018-03-08] MEDS: ZINC SULFATE 220 MG CAP GTB (08:07)
[2018-03-08] MEDS: FERROUS SULFATE 60 MG/ML 5ML CUP GTB ×2 (08:07→22:33)
[2018-03-08] MEDS: SODIUM HYPOCHLORITE (1/40) 1 APPLIC BTL IRR ×2 (08:08→22:35)
[2018-03-08] MEDS: LACTOBACILLUS RHAMNOSUS CAP PO ×2 (08:09→22:33)
[2018-03-08] MEDS: VORICONAZOLE 200 MG TAB PO ×2 (09:00→22:33)
[2018-03-08] MEDS: MULTIVITAMINS THERAPEUTIC TAB PO (09:00)
[2018-03-08] MEDS: CHLORHEXIDINE GLUCONATE 15 ML UD CUP PO ×2 (09:10→22:33)
[2018-03-08] MEDS: MAGNESIUM SULFATE 2 GM/50 ML 50 ML IVPB ×2 (09:11→12:28)
[2018-03-08] MEDS: LEVETIRACETAM IV 750 MG in DEXTROSE 5% 100 ML IVPB ×2 (10:15→22:35)
[2018-03-08] MEDS: CEFEPIME 1GM/50 ML (PMX) 50 ML IVPB ×2 (10:38→22:33)
[2018-03-08] MEDS ORDERED: VANCOMYCIN 750 MG in SOD CHLORIDE 0.9% 150 ML IVPB (12:00)
[2018-03-08] MEDS: VANCOMYCIN 500MG/NS (PMX) 100 ML IVPB (15:01)
[2018-03-08] MEDS ORDERED: VANCOMYCIN 500MG/NS (PMX) 100 ML IVPB (22:00)
[2018-03-09] MEDS: VANCOMYCIN 500MG/NS (PMX) 100 ML IVPB ×2 (00:10→11:52)
[2018-03-09] MEDS: NS + KCL 20 MEQ 1,000 ML IV ×3 (05:26→17:00)
[2018-03-09] MEDS: PANTOPRAZOLE 40 MG INJ IV ×2 (05:30→05:32)
[2018-03-09 06:24] LABS: ADD MAN DIFF? NO
[2018-03-09 07:14] LABS: ALANINE AMINOTRANSFERASE 112 IU/L (13-69); ALBUMIN 2.5 g/dl (3.3-4.9); ALBUMIN/GLOBULIN RATIO 0.69; ALKALINE PHOSPHATASE 164 IU/L (42-121); ANION GAP 9 (8-16); ASPARTATE AMINO TRANSFERASE 58 IU/L (15-46); BILIRUBIN,INDIRECT 0.2 mg/dl (0-1.1); BILIRUBIN,TOTAL 0.2 mg/dl (0.2-1.3); BLOOD UREA NITROGEN 12 mg/dl (7-20); CALCIUM 8.7 mg/dl (8.4-10.2); CARBON DIOXIDE 21 mmol/L (21-31); CHLORIDE 115 mmol/L (97-110); CREATININE 0.56 mg/dl (0.61-1.24); GLUCOSE 114 mg/dl (70-220); POTASSIUM 3.3 mmol/L (3.5-5.1); SODIUM 142 mmol/L (135-144); TOTAL PROTEIN 6.1 g/dl (6.1-8.1)
[2018-03-09 08:39] LABS: WHITE BLOOD COUNT 12.9 10^3/ul (4.8-10.8)
[2018-03-09 08:39] LABS: BASOPHILS % 0.3 % (0.0-2.0); EOSINOPHILS # 0.3 10^3/ul (0.0-0.5); EOSINOPHILS % 1.9 % (0.0-7.0); HEMATOCRIT 27.1 % (42.0-52.0); HEMOGLOBIN 8.5 g/dl (14.0-18.0); LYMPHOCYTES # 2.1 10^3/ul (0.8-2.9); MEAN CORPUSCULAR HEMOGLOBIN 28.7 pg (29.0-33.0); MEAN CORPUSCULAR HGB CONC 31.4 g/dl (32.0-37.0); MEAN CORPUSCULAR VOLUME 91.6 fl (82.0-101.0); MEAN PLATELET VOLUME 11.1 fl (7.4-10.4); MONOCYTE # 1.1 10^3/ul (0.3-0.9); MONOCYTES % 8.4 % (0.0-11.0); NEUTROPHIL # 9.4 10^3/ul (1.6-7.5); NEUTROPHILS % 72.9 % (39.0-77.0); PLATELET COUNT 182 10^3/UL (140-415); RED BLOOD COUNT 2.96 10^6/ul (4.70-6.10); RED CELL DISTRIBUTION WIDTH 16.1 % (11.5-14.5)
[2018-03-09] MEDS: CEFEPIME 1GM/50 ML (PMX) 50 ML IVPB ×2 (10:21→21:00)
[2018-03-09] MEDS: VORICONAZOLE 200 MG TAB PO ×2 (10:21→21:00)
[2018-03-09] MEDS: CHLORHEXIDINE GLUCONATE 15 ML UD CUP PO ×2 (10:21→21:00)
[2018-03-09] MEDS: FERROUS SULFATE 60 MG/ML 5ML CUP GTB ×2 (10:21→21:00)
[2018-03-09] MEDS: LEVETIRACETAM IV 750 MG in DEXTROSE 5% 100 ML IVPB (10:21)
[2018-03-09] MEDS: LACTOBACILLUS RHAMNOSUS CAP PO ×2 (10:21→21:00)
[2018-03-09] MEDS: SODIUM HYPOCHLORITE (1/40) 1 APPLIC BTL IRR ×2 (10:22→21:00)
[2018-03-09] MEDS: MULTIVITAMINS THERAPEUTIC TAB PO (10:22)
[2018-03-09] MEDS: ASCORBIC ACID 500 MG TAB GTB (10:22)
[2018-03-09] MEDS: ZINC SULFATE 220 MG CAP GTB (10:22)
[2018-03-09] MEDS: POTASSIUM CHLORIDE 20 MEQ POWDER FOR ORAL SOLN GTB (11:30)
[2018-03-09] MEDS: EPOETIN 4000 UNITS/ML (NON ESRD/NON ONCOLOGY) SC (17:00)
[2018-03-09] MEDS ORDERED: PROCHLORPERAZINE 10 MG TAB PO (17:00)
[2018-03-09] MEDS ORDERED: ACETAMINOPHEN 650MG/20.3ML CUP PO (17:00)
[2018-03-09] MEDS ORDERED: HYOSCYAMINE 0.125 MG SUBL TAB SL (17:00)
[2018-03-09] MEDS ORDERED: DIMETHICONE STICK TOP (17:00)
[2018-03-09] MEDS ORDERED: LORAZEPAM 2 MG INJ IV (17:00)
[2018-03-09] MEDS ORDERED: SCOPOLAMINE 1.5 MG PATCH TRANSDERM (17:30)
[2018-03-09] MEDS: morphine 2 MG INJ IV (18:00)
[2018-03-09] MEDS: morphine (DRIP) 100 MG/100 ML 100 ML IV (19:26)
[2018-03-09] MEDS: LEVETIRACETAM 500 MG TAB GTB (21:00)
[2018-03-10] MEDS: COLLAGENASE 5 GM (UD JAR) TOP (09:17)
[2018-03-10] MEDS: SCOPOLAMINE 1.5 MG PATCH TRANSDERM (12:56)
[2018-03-10] MEDS: ARTIFICIAL TEARS 15 ML OPH BOTH EYES (15:48)
[2018-03-11] MEDS: COLLAGENASE 5 GM (UD JAR) TOP (10:14)
[2018-03-11] MEDS: morphine (DRIP) 100 MG/100 ML 100 ML IV (21:08)
[2018-03-12] MEDS: COLLAGENASE 5 GM (UD JAR) TOP (09:00)
[2018-03-12] MEDS ORDERED: ATROPINE 1% 5 ML OPH SL (18:00)
[2018-03-12] MEDS ORDERED: ACETAMINOPHEN 325 MG TAB PO (18:00)
[2018-03-12] MEDS: LEVETIRACETAM 750 MG TAB PO (20:39)
[2018-03-13] MEDS: ARTIFICIAL TEARS 15 ML OPH BOTH EYES (05:39)
[2018-03-13] MEDS: COLLAGENASE 5 GM (UD JAR) TOP (09:00)
[2018-03-13] MEDS: LEVETIRACETAM 750 MG TAB PO ×2 (09:49→21:11)
[2018-03-13] MEDS: SCOPOLAMINE 1.5 MG PATCH TRANSDERM (13:15)
[2018-03-14] MEDS: morphine (DRIP) 100 MG/100 ML 100 ML IV (02:35)
[2018-03-14] MEDS: COLLAGENASE 5 GM (UD JAR) TOP (09:00)
[2018-03-14] MEDS: LEVETIRACETAM 750 MG TAB PO ×2 (09:15→21:21)
[2018-03-15] MEDS: morphine (DRIP) 100 MG/100 ML 100 ML IV (06:35)
[2018-03-15] MEDS: LEVETIRACETAM 750 MG TAB PO ×2 (08:52→21:08)
[2018-03-15] MEDS: COLLAGENASE 5 GM (UD JAR) TOP (16:05)
[2018-03-16] MEDS: morphine (DRIP) 100 MG/100 ML 100 ML IV ×2 (02:18→21:46)
[2018-03-16] MEDS: LEVETIRACETAM 750 MG TAB PO (10:22)
[2018-03-16] MEDS: COLLAGENASE 5 GM (UD JAR) TOP (10:22)
[2018-03-16] MEDS: SCOPOLAMINE 1.5 MG PATCH TRANSDERM (14:14)
[2018-03-16] MEDS: LORAZEPAM 2 MG INJ IV ×2 (17:01→21:00)
[2018-03-17] MEDS: LORAZEPAM 2 MG INJ IV ×4 (01:48→13:37)
[2018-03-17] MEDS: COLLAGENASE 5 GM (UD JAR) TOP (09:02)
[2018-03-17] MEDS: morphine (DRIP) 100 MG/100 ML 100 ML IV ×2 (10:37→10:51)
[2018-03-17] MEDS ORDERED: morphine (DRIP) 100 MG/100 ML 100 ML IV (10:43)
== END 2018-03-17 14:50 | disposition expired | DRG 871 ==
LOC: E/R 10:34 → TEL 15:26 → MS1 03-09 23:50
PROC: 0DJD8ZZ Inspection of Lower Intestinal Tract, Via Natural or Artificial Opening Endoscopic (ICD-10-PCS; principal; 2018-03-08 12:45)
PROC: 0DB98ZX Excision of Duodenum, Via Natural or Artificial Opening Endoscopic, Diagnostic (ICD-10-PCS; 2018-03-08 12:45)
PROC: 30233N1 Transfusion of Nonautologous Red Blood Cells into Peripheral Vein, Percutaneous Approach (ICD-10-PCS; 2018-03-08 12:45)
DX: A41.9 Sepsis, unspecified organism (principal); R40.20 Unspecified coma; G93.49 Other encephalopathy; N39.0 Urinary tract infection, site not specified; N17.9 Acute kidney failure, unspecified; J96.10 Chronic respiratory failure, unspecified whether with hypoxia or hypercapnia; R40.3 Persistent vegetative state; K92.2 Gastrointestinal hemorrhage, unspecified; Z93.0 Tracheostomy status; L89.150 Pressure ulcer of sacral region, unstageable; R40.2434 Glasgow coma scale score 3-8, 24 hours or more after hospital admission; D62 Acute posthemorrhagic anemia; D63.8 Anemia in other chronic diseases classified elsewhere; R74.0 Nonspecific elevation of levels of transaminase and lactic acid dehydrogenase [LDH]; Z87.820 Personal history of traumatic brain injury; Z86.74 Personal history of sudden cardiac arrest; G40.909 Epilepsy, unspecified, not intractable, without status epilepticus; Z51.5 Encounter for palliative care; Z66 Do not resuscitate
CPT/HCPCS: 36415; 36430; 36600; 71045; 76705; 80053; 80202; 81001; 82803; 83605; 83735; 84484; 85025; 85610; 85730; 86850; 86900; 86901; 86920; 87040; 87070; 87086; 88305; 89220; 93005; 96365; 96375; 99291-25